=== PATIENT | female | born 1935 | race Two or more races ===

== ENCOUNTER 2016-08-02 12:06 | Emergency (ER) | payer MEDICARE, OTHER ==
[~2016-08-02] VITALS: Ht 167.6 cm; Wt 77.1 kg
[2016-08-02] MEDS ORDERED: HYDROcodone-ACET 5/325MG TAB PO ONE (14:15)
[2016-08-02 15:39] VITALS: BP 135/40
== END 2016-08-02 15:03 | disposition home or self-care (01) ==
LOC: EDBD 12:06 → ER 12:10
DX: S16.1XXA Strain of muscle, fascia and tendon at neck level, initial encounter (principal); S20.219A Contusion of unspecified front wall of thorax, initial encounter; S00.511A Abrasion of lip, initial encounter; E78.5 Hyperlipidemia, unspecified; I10 Essential (primary) hypertension; M81.0 Age-related osteoporosis without current pathological fracture; V89.2XXA Person injured in unspecified motor-vehicle accident, traffic, initial encounter; Y93.89 Activity, other specified; Y99.8 Other external cause status; Y92.89 Other specified places as the place of occurrence of the external cause
CPT/HCPCS: 71020; 72125; 93005